=== PATIENT | female | born 2000 | race Caucasian/White ===

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

== ENCOUNTER 2020-09-27 11:49 | Emergency (ER) | payer OTHER ==
[~2020-09-27] VITALS: Ht 149.9 cm; Wt 63.5 kg
[2020-09-27 11:56] VITALS: BP 115/42
--- NOTE | 2020-09-27 13:28 | NUR ---
20/F presents to ED with c/o upper epigastric pain since last night. Patient states she was at rest last night when she began experiencing 10/10 burning upper epigastric pain, patient denies taking anything at home for pain. States she had 3 episodes of vomiting and 4 episodes of diarrhea. Patient denies nausea, dysuria or hematuria at this time. Upper epigastric area is tender to touch, patient states she has been unable to eat or drink anything today.
[2020-09-27] MEDS ORDERED: ONDANSETRON 4 MG ODT PO ONE (13:35)
[2020-09-27] MEDS ORDERED: ALUMINUM HYD/MAG/SIMETHICONE 30 ML, DICYCLOMINE HCL LIQUID 20 MG, LIDOCAINE VISCOUS 2% ... PO ONE ×3 (13:35)
[2020-09-27] MEDS ORDERED: KETOROLAC 60 MG/2 ML VIAL IM ONE (13:35)
--- NOTE | 2020-09-27 13:40 | NUR ---
US AT BEDSIDE.
[2020-09-27] MEDS ORDERED: LIDOCAINE VISCOUS 2% 20 ML UDC ONE (13:46)
[2020-09-27] MEDS ORDERED: ALUMINUM HYD/MAG/SIMETHICONE 30 ML UDC ONE (13:46)
[2020-09-27] MEDS ORDERED: DICYCLOMINE HCL LIQUID 10 MG/5 ML UDC ONE (13:46)
[2020-09-27 13:58] LABS: BASOPHILS % (AUTO) 0.1 % (0.0-2.0); EOSINOPHILS % (AUTO) 0.4 % (0.0-4.0); HEMOGLOBIN 14.2 g/dL (12.0-16.0); MEAN CORPUSCULAR HEMOGLOBIN 30 pg (27-31); MEAN CORPUSCULAR HGB CONC 34 g/dL (33-37); MEAN CORPUSCULAR VOLUME 89.4 fL (80-94); MONOCYTES # (AUTO) 0.9 K/uL (0.8-1.0); MONOCYTES % (AUTO) 8.4 % (1.7-9.3); NEUTROPHILS # (AUTO) 8.2 K/uL (1.8-7.7); NEUTROPHILS % (AUTO) 81.1 % (42.2-75.2); PLATELET COUNT (AUTO) 252 K/uL (140-450); RED CELL DISTRIBUTION WIDTH 13.1 % (11.6-13.7); WHITE BLOOD COUNT (AUTO) 10.2 K/uL (4.8-10.8)
[2020-09-27 14:13] LABS: ALBUMIN 3.7 g/dL (3.4-5.0); ANION GAP 12.8 (8-16); CARBON DIOXIDE 26.1 mmol/L (21-32); CREATININE 0.7 mg/dL (0.6-1.3); POTASSIUM 3.9 mmol/L (3.5-5.1); TOTAL BILIRUBIN 0.6 mg/dL (0.0-1.0)
[2020-09-27] MEDS ORDERED: FAMO-90 PO (15:24)
[2020-09-27 15:29] VITALS: BP 115/42
--- NOTE | 2020-09-27 15:30 | NUR ---
Patient discharged with v/s stable. Written and verbal after care instructions given and explained. Patient alert, oriented and verbalized understanding of instructions. Ambulatory with steady gait. All questions addressed prior to discharge. ID band removed. Patient advised to follow up with PMD. Rx of FAMOTIDINE given. Patient educated on indication of medication including possible reaction and side effects. Opportunity to ask questions provided and answered.
== END 2020-09-27 15:30 | disposition home or self-care (01) ==
LOC: MED 11:49
DX: K29.70 Gastritis, unspecified, without bleeding (principal)
CPT/HCPCS: 36415; 76705; 80053; 81002; 81025; 83690; 85025; 96372; 99284; J1885; Q0162

== ENCOUNTER 2022-08-06 12:52 | Emergency (ER) | payer OTHER ==
[~2022-08-06] VITALS: Ht 149.9 cm; Wt 68.7 kg
[~2022-08-06 12:52] MED LIST: FAMO-90 PO
[2022-08-06 13:08] VITALS: BP 141/49
--- NOTE | 2022-08-06 13:11 | NUR ---
pt to bed ambulatory with urine cup.
[2022-08-06 13:58] LABS: BASOPHILS % (AUTO) 0.1 % (0.0-2.0); EOSINOPHILS % (AUTO) 0.1 % (0.0-4.0); HEMATOCRIT 42.7 % (36-48); HEMOGLOBIN 14.3 g/dL (12.0-16.0); LYMPHOCYTES # (AUTO) 0.5 K/uL (2.5-16.5); LYMPHOCYTES % (AUTO) 3.6 % (20.5-51.1); MEAN CORPUSCULAR HEMOGLOBIN 29 pg (27-31); MEAN CORPUSCULAR HGB CONC 34 g/dL (33-37); MEAN CORPUSCULAR VOLUME 87.3 fL (80-94); MONOCYTES # (AUTO) 0.6 K/uL (0.8-1.0); MONOCYTES % (AUTO) 4.1 % (1.7-9.3); NEUTROPHILS # (AUTO) 13.6 K/uL (1.8-7.7); NEUTROPHILS % (AUTO) 92.1 % (42.2-75.2); PLATELET COUNT (AUTO) 249 K/uL (140-450); RED BLOOD CELL COUNT(AUTO) 4.89 MIL/uL (4.20-5.40); RED CELL DISTRIBUTION WIDTH 13.3 % (11.6-13.7); WHITE BLOOD COUNT (AUTO) 14.8 K/uL (4.8-10.8)
[2022-08-06 14:12] LABS: BILIRUBIN,URINE NEGATIVE (NEGATIVE); BLOOD, URINE NEGATIVE (NEGATIVE); COLOR,URINE YELLOW (YELLOW); LEUKOCYTE ESTERASE ,URINE 2+ (NEGATIVE); NITRITE, URINE NEGATIVE (NEGATIVE); UGLUCOSE NEGATIVE (NEGATIVE)
[2022-08-06 14:16] LABS: ALBUMIN 3.8 g/dL (3.4-5.0); ANION GAP 12.5 (8-16); CARBON DIOXIDE 24.5 mmol/L (21-32); CREATININE 0.7 mg/dL (0.6-1.3); TOTAL BILIRUBIN 0.5 mg/dL (0.0-1.0)
[2022-08-06 14:25] LABS: APPEARANCE,URINE HAZY (CLEAR); RBC,URINE 11-20 (MOD) /HPF (0-5); WBC,URINE 0-5 /HPF (0-5)
[2022-08-06] MEDS ORDERED: KETOROLAC 30 MG/ML VIAL IM ONE (14:50)
[2022-08-06] MEDS ORDERED: CEPH-588 PO (16:19)
[2022-08-06] MEDS ORDERED: FAMO-90 PO (16:19)
--- NOTE | 2022-08-06 16:32 | NUR ---
Patient discharged with v/s stable. Written and verbal after care instructions given and explained. Patient alert, oriented and verbalized understanding of instructions. Ambulatory with steady gait. All questions addressed prior to discharge. ID band removed. Patient advised to follow up with PMD. Rx of keflex and pepcid given. Patient educated on indication of medication including possible reaction and side effects. Opportunity to ask questions provided and answered.
[2022-08-06 16:33] VITALS: BP 109/65
== END 2022-08-06 16:33 | disposition home or self-care (01) ==
LOC: MED 12:52
DX: N39.0 Urinary tract infection, site not specified (principal); K29.70 Gastritis, unspecified, without bleeding; I10 Essential (primary) hypertension; Z79.899 Other long term (current) drug therapy
CPT/HCPCS: 36415; 76705; 80053; 81001; 81025; 83690; 85025; 87086; 96372; 99285; J1885; Q0092